=== PATIENT | female | born 1940 | race Caucasian/White ===

== ENCOUNTER → 2018-02-21 | Outpatient (CLI) | payer MEDICARE, BC ==
[~2018-02-21] MED LIST: AUG875 PO; AZIT-1 PO; AZIT-18 PO; BENZ100C4 PO; CEPH500C24 PO; CHOL100058 PO; CHOL200022 PO; ERGO500037 PO; FLUT9.9S; GLY25 PO; GUAI120L3 PO; HYD2 PO; HYDR-389 PO; LEVO-271 PO; LEVO125T77 PO; LEVO175T42 PO; LEVO200T50 PO; LEVO50TA80 PO; METF-410 PO; NAPR500T31 PO
== END ==
LOC: LAB 09:14
PROVIDERS: ATTEND Internal Medicine
DX: E03.9 Hypothyroidism, unspecified (principal); E11.9 Type 2 diabetes mellitus without complications
CPT/HCPCS: 36415; 84439; 84443

== ENCOUNTER → 2018-11-21 | Outpatient (CLI) | payer MEDICARE, BC ==
[~2018-11-21] MED LIST changes: +CHOL200018 PO; -CHOL200022 PO; +LEVO137T23 PO; -METF-410 PO; +METF-450 PO
== END ==
LOC: LAB 09:26
PROVIDERS: ATTEND Internal Medicine
DX: E89.0 Postprocedural hypothyroidism (principal); E11.9 Type 2 diabetes mellitus without complications
CPT/HCPCS: 36415; 83036; 84439; 84443

== ENCOUNTER → 2019-05-27 | Outpatient (CLI) | payer MEDICARE, BC ==
[~2019-05-27] MED LIST changes: +GLIP-175 PO; +LEVO-317 PO
== END ==
LOC: LAB 15:06
PROVIDERS: ATTEND Internal Medicine
DX: E89.0 Postprocedural hypothyroidism (principal)
CPT/HCPCS: 36415; 84443